=== PATIENT | female | born 1935 | race Caucasian/White ===

== ENCOUNTER 2018-04-11 07:05 | Inpatient (IN) | payer MEDICARE, BC ==
[~2018-04-11] VITALS: Ht 152.4 cm; Wt 71.3 kg
[2018-04-11] MEDS ORDERED: ACETAMINOPHEN 1000 MG/100 ML 100 ML IV ONE (07:24)
[2018-04-11] MEDS ORDERED: VANCOMYCIN 1 GM/200 ML INJ 200 ML IV ONE (07:32)
[2018-04-11] MEDS ORDERED: FAT EMULSION 20% INJ 0 ML ONE (07:32)
[2018-04-11] MEDS ORDERED: METOPROLOL TARTRATE 25 MG TAB PO PRN (07:45)
[2018-04-11] MEDS ORDERED: POVIDONE IODINE 5% (ANTISEPSIS KIT) 4 APPLICATIONS EACH NARE PRN (07:45)
[2018-04-11] MEDS ORDERED: CHLORHEXIDINE GLUCONATE 2 % 1 PACK (2 CLOTHS) TOPICAL PRN (07:45)
[2018-04-11] MEDS ORDERED: SODIUM CHLORID 0.9% 500 ML IV PRN (07:45)
[2018-04-11] MEDS ORDERED: CHLORHEXIDINE GLUCONATE 4% SOLN 120 ML BTL TOPICAL SCH (07:45)
[2018-04-11] MEDS ORDERED: TRANEXAMIC ACID INJ 710 MG in SODIUM CHLORIDE 0.9% INJ 100 ML IV SCH (07:45)
[2018-04-11] MEDS ORDERED: VANCOMYCIN 1000 MG/NS 250 ML (for <70 kg) IV SCH ×2 (07:45)
[2018-04-11] MEDS ORDERED: EXPAREL PERI-ARTICULAR INJECTION (TOTAL VOL. 60 ML) P-ARTICULR SCH ×2 (07:45)
[2018-04-11] MEDS ORDERED: LACTATED RINGER'S 1000 ML IV PRN (07:45)
[2018-04-11] MEDS ORDERED: ceFAZolin 2 GM PREMIX 50 ML IV SCH (07:45)
[2018-04-11] MEDS ORDERED: GENTAMICIN SULFATE 80 MG/2 ML VIAL ONE ×3 (08:14→08:16)
[2018-04-11] MEDS ORDERED: LEVO.125 PO (08:25)
[2018-04-11] MEDS ORDERED: CARV3.125 PO (08:25)
[2018-04-11] MEDS ORDERED: ASPI1TAB57 PO (08:25)
[2018-04-11] MEDS ORDERED: ZOLO50TA PO (08:25)
[2018-04-11] MEDS ORDERED: DICL75TA PO (08:25)
[2018-04-11] MEDS ORDERED: BUPIVACAINE HCL PF 0.5% 30 ML VIAL ONE (08:48)
[2018-04-11] MEDS ORDERED: DEXAMETHASONE SOD PHOS PF 10 MG/ML VIAL ONE (08:48)
[2018-04-11] MEDS ORDERED: BUPIVACAINE/EPINEPHRINE 0.25% 50 ML VIAL ONE (09:08)
[2018-04-11] MEDS ORDERED: NALOXONE HCL 0.4 MG/ML AMP IV PUSH PRN (11:30)
[2018-04-11] MEDS ORDERED: PHARMACY INFORMATION XX ONE (11:30)
[2018-04-11] MEDS ORDERED: MORPHINE SULFATE 8 MG/ML INJ IM PRN (11:30)
[2018-04-11] MEDS ORDERED: oxyCODONE/ACETAMINOPHEN 5 MG/325 MG TAB PO PRN ×2 (11:30)
[2018-04-11] MEDS ORDERED: Post-op Orders (for Pharmacy) XX ONE (11:30)
[2018-04-11] MEDS ORDERED: NURSING INFORMATION XX PRN (11:30)
--- NOTE | 2018-04-11 11:36 | PD.OP ---
cc: Esau Cunningham MD Operative Report Date of Surgery: April 11, 2018 Preoperative Diagnosis: Osteoarthritis right knee Postoperative Diagnosis: Same Procedure: Right total knee replacement arthroplasty, kinematic retaining Anesthesia: General with regional for pain control Surgeon: Esau Cunningham Take Away Attendant(s): BENSON Queen Operation and Findings: EBL: 100 cc INDICATION: This patient presents with long-standing arthritis of the knee. Attachment record documents conservative measures. The patient now presents for surgical treatment. NOTE: Jennifer Queen PA-C was present for the entire surgical procedure as my ortho assistant. In my medical opinion her skill and care was necessary for proper management of this patient. TOURNIQUET TIME: 62 minutes COMPANY: [employer] FEMUR: Size 6, cruciate retaining TIBIA: Size 5, fixed-bearing PATELLA: 32 mm POLYETHYLENE INSERT: 11 mm, kinematic retaining PROCEDURE: This patient was brought the operating room and anesthetized in the supine position. The patient was positioned supine on the table. The tourniquet was placed about the thigh, and the leg was scrubbed with alcohol followed by Hibiclens followed by ChloraPrep and draped sterilely. A timeout was done, and antibiotics were given. After exsanguination the tourniquet was inflated to 250 mmHg. An anterior incision was made and a median parapatellar arthrotomy was performed. The patella was released laterally and subluxed allowing freehand cut of the patella which was then sized. A metal cap was placed over the exposed patellar surface for protection. A fire pilot hole was placed in the distal femur allowing a 6 valgus cut removing 10 mm from the distal femur. Anterior posterior and chamfer cuts were made. 3 of external rotation was placed into the femoral rotation The attention was directed to the tibia. Retractors were positioned. The external alignment guide was used allowing the lateral tibia to be used as referencing guide and cut utilizing an oscillating saw taking care to avoid any injury to the surrounding soft tissues. This was sized properly. Trial reduction showed that the insert fit nicely. The patient had range of motion extension 0 flexion 125. A medial release was necessary. The bony surfaces prepared. On the back table 2 packets of methylmethacrylate were mixed. The components were cemented. Excess cement was removed. The tourniquet let down and hemostasis was controlled. The final plastic insert was inserted. Range of motion was the same as previously noted. A drain was brought through a separate stab incision. The arthrotomy was repaired with interrupted #1 Vicryl suture, subcutaneous tissue 2-0 Vicryl suture and skin with metallic zachariah A sterile dressing was applied. Sponge counts, needle counts and instrument counts were all correct. The patient tolerated procedure well and was taken to recovery in satisfactory condition. FINDINGS: There was severe osteoarthritis with a varus deformity. The final solution appeared to be excellent. Motion appear to be excellent. Balance appeared to be excellent. Esau Cunningham MD April 11, 2018 11:36
[2018-04-11] MEDS ORDERED: ECASA81 PO (11:38)
[2018-04-11] MEDS ORDERED: OXYC1TAB63 PO (11:38)
[2018-04-11] MEDS ORDERED: WALKER/ADULT/FO1 MIS (11:39)
--- NOTE | 2018-04-11 11:41 | HHI.DCPOC ---
Discharge Care Plan Diagnosis: (1) Primary osteoarthritis of right knee Goals to Promote Your Health * To prevent worsening of your condition and complications * To maintain your health at the optimal level Directions to Meet Your Goals Take your medications as prescribed Follow your dietary instruction Follow activity as directed Keep your appointments as scheduled Take your immunizations and boosters as scheduled If your symptoms worsen call your PCP, if no PCP go to Urgent Care Center or Emergency Room Smoking is Dangerous to Your Health. Avoid second hand smoke Call the 24-hour hour crisis hotline for domestic abuse at Esau Cunningham MD April 11, 2018 11:41
--- NOTE | 2018-04-11 11:41 | HHI.FF ---
Face to Face Verification Diagnosis: (1) Primary osteoarthritis of right knee Physical Therapy Gait training Knee: Total knee Canvas Knee Splint: Other (At night for 4 weeks) Right LE Weight Bearing: WB as tolerated Nursing Nursing: Other (Overall health and monitor incision and potential complications ) Dressing Changes: Do not change dressing I have seen patient [place] Stanley on 04/11/18. My clinical findings support the need for the requested home health care services because: Limited ability to care for self High risk of falls I certify that my clinical findings support that this patient is homebound because: Unsteady gait/balance Esau Cunningham MD April 11, 2018 11:41
--- NOTE | 2018-04-11 11:44 | HHI.DS ---
Discharge Summary Admission Date April 11, 2018 at 07:05 Discharge Date: April 12, 2018 Admitting Diagnosis Osteoarthritis right knee Diagnosis: (1) Primary osteoarthritis of right knee Diagnosis: Principal ICD Codes: M17.11 - Unilateral primary osteoarthritis, right knee Procedures Right total knee replacement arthroplasty Brief History This is a 83 year old female patient with long-standing osteoarthritis of the right knee. Despite conservative care as documented on the attached records which include injections, oral medications, use of an assistive gait aid, the patient continued to be painful and symptomatic and is losing function. She now presents for elective knee replacement arthroplasty Imaging Postoperative x-ray of the right knee shows well-positioned cemented total knee replacement PE at Discharge Incision is clean. No significant drainage. Mild swelling. No calf tenderness. Hospital Course The patient was admitted electively. On the date of admission she had an elective total knee replacement performed under a general anesthetic. There was a limited blood loss of 100 cc. She was transferred to the recovery room and then to the floor. The drain was DC'd on the first postoperative day. She was up out of bed and ambulating. She is felt to be a candidate for discharge to home Pt Condition on Discharge: Good Discharge Disposition: Disch w/ Home Health Serv Discharge Instructions Diet Instructions: As Tolerated, No Restrictions Activities You Can Perform: Weight Bearing as [place] Activities to Avoid: Bathing, Driving Esau Cunningham MD April 11, 2018 11:44
[2018-04-11] MEDS ORDERED: DO NOT ADM ANY ANTICOAGULANT DRUGS PRN (11:52)
[2018-04-11 11:55] VITALS: BP 123/60; PULSE 95; RESP 18; TEMP 98.5; O2SAT 91
[2018-04-11] MEDS ORDERED: MIDAZOLAM HCL 2 MG/2 ML VIAL ONE (11:59)
[2018-04-11] MEDS ORDERED: *morphine SULFATE 8 MG/ML PERIprocedure ONLY ONE ×2 (12:13→12:39)
[2018-04-11] MEDS ORDERED: *ONDANSETRON 4 MG VIAL PERIprocedural Use ONLY ONE (12:17)
--- NOTE | 2018-04-11 13:25 | RADRPT ---
EXAM DATE/TIME: 04/11/2018 12:42 [facility] COMPARISON: No previous studies available for comparison. INDICATIONS : Post op right knee MEDICAL HISTORY : None. SURGICAL HISTORY : right knee replaced ENCOUNTER: Subsequent ACUITY: 1 day PAIN SCORE: Non-responsive. LOCATION: Right knee FINDINGS: Frontal and lateral views obtained portably of the right knee demonstrate a total knee arthroplasty w ith overlying skin zachariah, surgical drain, subcutaneous air and soft tissue swelling. The tibial and femoral components appear well seated. CONCLUSION: Right total knee arthroplasty. Raul Mraie MD on April 11, 2018 at 13:22 Board Certified Radiologist. This report was verified electronically.
[2018-04-11] MEDS ORDERED: ASPIRIN 81 MG CHEW TAB ONE (13:47)
[2018-04-11] MEDS ORDERED: ASPIRIN EC 81 MG TABEC PO ONE (15:30)
[2018-04-11 16:00] VITALS: BP 115/70; PULSE 95; RESP 18; TEMP 98.3; O2SAT 95
[2018-04-11] MEDS: LACTATED RINGER'S 1000 ML INJ 1,000 ML IV SCH (17:14)
[2018-04-11] MEDS ORDERED: ACETAMINOPHEN/HYDROcodone 325 MG/5 MG TAB PO PRN ×2 (17:30→17:45)
[2018-04-11] MEDS ORDERED: ONDANSETRON HCL 4 MG/2 ML VIAL IV PUSH PRN (17:45)
[2018-04-11 20:00] VITALS: BP 136/78; PULSE 94; RESP 18; TEMP 97.6; O2SAT 93
[2018-04-11] MEDS: ASPIRIN EC 81 MG TABEC PO SCH (20:14)
[2018-04-11] MEDS: MAGNESIUM HYDROXIDE SUSP 30 ML CUP PO SCH (20:14)
[2018-04-11] MEDS ORDERED: SENNOSIDES 8.6 MG TAB PO SCH (21:00)
[2018-04-11] MEDS ORDERED: TEMAZEPAM 15 MG CAP PO PRN (21:00)
[2018-04-11] MEDS ORDERED: CALCIUM CARBONATE 500 MG CHEWABLE TAB PO PRN (23:15)
[2018-04-12 04:00] VITALS: BP 147/47; PULSE 101; RESP 18; TEMP 97.6; O2SAT 93
[2018-04-12] MEDS: LACTATED RINGER'S 1000 ML INJ 1,000 ML IV SCH ×2 (04:30→04:54)
[2018-04-12] MEDS ORDERED: LEVOTHYROXINE SODIUM 125 MCG TAB PO SCH (06:00)
[2018-04-12 06:19] LABS: HEMATOCRIT 32.6 % (35.0-46.0); HEMOGLOBIN 10.8 GM/DL (11.6-15.3)
--- NOTE | 2018-04-12 07:16 | PD.ORT.PN ---
Subjective Subjective Remarks No complaints. Pain well controlled. Wants to go home Objective Vitals Vital Signs Date Time Temp Pulse Resp B/P (MAP) Pulse Ox O2 Delivery O2 Flow Rate FiO2 04/12/18 04:00 97.6 101 18 147/47 (80) 93 04/11/18 20:00 97.6 94 18 136/78 (97) 93 04/11/18 16:00 98.3 95 18 115/70 (85) 95 04/11/18 14:00 97.0 95 14 130/77 (94) 95 Nasal Cannula 3 04/11/18 13:30 92 14 139/75 (96) 96 Nasal Cannula 3 04/11/18 13:00 97 17 126/68 (87) 95 Nasal Cannula 3 04/11/18 12:45 96 16 133/76 (95) 95 Nasal Cannula 3 04/11/18 12:30 94 17 130/75 (93) 95 Nasal Cannula 3 04/11/18 12:15 92 17 153/78 (103) 95 Nasal Cannula 3 04/11/18 12:00 94 17 137/74 (95) 97 Nasal Cannula 3 04/11/18 11:55 98.5 95 18 123/60 (81) 91 04/11/18 11:51 97.7 98 17 128/72 (90) 96 Nasal Cannula 3 04/11/18 08:26 Nasal Cannula 2 04/11/18 07:50 98.4 84 20 132/78 (96) 94 I/O 04/11/18 04/11/18 04/11/18 04/12/18 04/12/18 04/12/18 07:00 15:00 23:00 07:00 15:00 23:00 Intake Total 1726 ml 100 ml 1505 ml Output Total 480 ml 160 ml 235 ml Balance 1246 ml -60 ml 1270 ml Intake Oral 420 ml IV Total 226 ml 100 ml 1085 ml Other 1500 ml Output Urine Total 350 ml Drainage Total 30 ml 160 ml 235 ml Estimated Blood Loss 100 ml # Voids 2 3 # Bowel Movements 0 Result Diagram: 04/12/18 0554 Imaging Last 24 hours Impressions Knee X-Ray 04/11/18 1128 Signed Impressions: Service Date/Time: Wednesday, April 11, 2018 12:42 - CONCLUSION: Right total knee arthroplasty. Raul Marie MD Procedures Right total knee replacement arthroplasty Objective Remarks Incision is clean. No significant drainage. Mild swelling. No calf tenderness. Assessment & Plan Problem List: (1) Primary osteoarthritis of right knee ICD Codes: M17.11 - Unilateral primary osteoarthritis, right knee Assessment and Plan Osteoarthritis right knee. SURGERY: Right total knee replacement arthroplasty: POD #1 PLAN: Discharge to home. Knee immobilizer at night for 4 weeks. Ambulation weightbearing as tolerated. No CPM machine. Oxycodone for pain. Enteric-coated aspirin 81 mg twice daily for 30 days. Follow-up in 2 weeks. Home health care. Home physical therapy Esau Cunningham MD April 12, 2018 07:16
[2018-04-12 08:00] VITALS: BP 121/67; PULSE 89; RESP 16; TEMP 98.9; O2SAT 93
[2018-04-12] MEDS ORDERED: CARVEDILOL 3.125 MG TAB PO SCH (09:00)
[2018-04-12] MEDS ORDERED: SERTRALINE HCL 50 MG TAB PO SCH (09:00)
[2018-04-12] MEDS: MAGNESIUM HYDROXIDE SUSP 30 ML CUP PO SCH (09:13)
[2018-04-12] MEDS: ASPIRIN EC 81 MG TABEC PO SCH (09:14)
[2018-04-12 12:00] VITALS: BP 125/68; PULSE 84; RESP 16; TEMP 98.5; O2SAT 97
== END 2018-04-12 15:14 | disposition home health service (06) | DRG 470 ==
LOC: HSDI 07:05 → N06B 15:10
PROVIDERS: ADMIT Orthopaedic Surgery Orthopaedic Surgery of the Spine; ATTEND Orthopaedic Surgery Orthopaedic Surgery of the Spine
PROC: 0SRC0J9 Replacement of Right Knee Joint with Synthetic Substitute, Cemented, Open Approach (ICD-10-PCS; principal; 2018-04-11 09:24)
DX: M17.11 Unilateral primary osteoarthritis, right knee (principal); M21.161 Varus deformity, not elsewhere classified, right knee; Z88.5 Allergy status to narcotic agent; Z79.82 Long term (current) use of aspirin; Z98.1 Arthrodesis status
CPT/HCPCS: 73560; 85014; 85018; 86850; 86900; 86901; 86920; 94150; C1776; J0131; J0690; J1100; J1580; J2250; J2270; J2405; J3010; J3370; J7050; J7120; L1830